=== PATIENT | male | born 1995 | race Caucasian/White ===

== ENCOUNTER 2017-01-30 06:18 | Emergency (ER) | payer OTHER ==
[2017-01-30 06:26] VITALS: RESP 16; TEMP 98.7
--- NOTE | 2017-01-30 06:31 | ED ---
General Adult HPI - General Source: patient, RN notes reviewed Mode of arrival: ambulatory Limitations: no limitations <Ravnidra Iraheta - Last Filed: 01/30/17 06:33> <Wang Chou - Last Filed: 01/30/17 07:50> - General Chief complaint: Extremity Injury, Lower Stated complaint: foot injury-[facility] Time Seen by Provider: 01/30/17 06:25 - History of Present Illness Initial comments: This is a 21-year-old male who presents emergency Department complaining of right foot pain. Patient states he was at work he dropped a gauge onto his right foot. Patient states the pain is at the fourth and fifth metatarsal. Patient states the gauge weighed about 9-10 pounds. Patient denies any ankle pain or any other problems. (Ravindra Iraheta) - Related Data Previous Rx's Medication Instructions Recorded Ibuprofen [Motrin] 600 mg PO Q8HR PRN #24 tab 01/30/17 Allergies Allergy/AdvReac Type Severity Reaction Status Date / Time No Known Allergies Allergy Verified 01/30/17 07:33 Review of Systems ROS Other: All systems not noted in ROS Statement are negative. <Ravindra Iraheta - Last Filed: 01/30/17 06:33> ROS Other: All systems not noted in ROS Statement are negative. <Wang Chou - Last Filed: 01/30/17 07:50> ROS Statement: Those systems with pertinent positive or pertinent negative responses have been documented in the HPI. Past Medical History Past Medical History: No Reported History History of Any Multi-Drug Resistant Organisms: None Reported Past Surgical History: No Surgical Hx Reported Past Psychological History: No Psychological Hx Reported Smoking Status: Never smoker Past Alcohol Use History: None Reported Past Drug Use History: None Reported <Ravindra Iraheta - Last Filed: 01/30/17 06:33> General Exam Limitations: no limitations <Ravindra Iraheta - Last Filed: 01/30/17 06:33> <Wang Chou - Last Filed: 01/30/17 07:50> - General Exam Comments Initial Comments: GENERAL Patient is well-developed and well-nourished. Patient is in mild distress. EYES Patient's pupils are equal and round. Extraocular motion is intact SKIN Unremarkable NEURO The patient is alert and oriented 3 PYSCH Patient has normal interpersonal interactions. MUSCULOSKELETAL Patient has tenderness at the distal aspect of the fourth metatarsal and there is slight ecchymosis in that area (Ravindra Iraheta) Medical Decision Making <Ravindra Iraheta - Last Filed: 01/30/17 06:33> <Wang Chou - Last Filed: 01/30/17 07:50> - Medical Decision Making Dr. Chou completely taking over the care of this patient at 7 AM (Ravindra Iraheta) Patient's care was signed out at shift change, pending x-ray of the right foot. I did review his x-ray, no acute bony abnormality, on reevaluation patient does have mild ecchymosis of the distal foot over the fourth metacarpal head. No significant tenderness or swelling. Patient is able to ambulate without difficulty. Patient will follow-up with his primary care physician in the next several days. (Wang Chou) Disposition <Ravindra Iraheta - Last Filed: 01/30/17 06:33> Time of Disposition: 07:50 <Wang Chou - Last Filed: 01/30/17 07:50> Clinical Impression: Foot contusion Disposition: HOME SELF-CARE Condition: Good Instructions: Foot Contusion (ED) Prescriptions: Ibuprofen [Motrin] 600 mg PO Q8HR PRN #24 tab PRN Reason: Pain Referrals: None,Stated [Primary Care Provider] - 1-2 days
--- NOTE | 2017-01-30 07:42 | XR ---
EXAMINATION TYPE: XR foot complete RT DATE OF EXAM: 01/30/2017 COMPARISON: NONE HISTORY: 21-year-old male with pain after injury, distal second through fifth metatarsal areas TECHNIQUE: 3 views FINDINGS: No acute fracture, subluxation, or dislocation. Joint spaces throughout are maintained. IMPRESSION: No acute osseous abnormality seen.
[2017-01-30 08:14] VITALS: BP 138/79; PULSE 57
== END 2017-01-30 08:13 | disposition home or self-care (01) ==
LOC: EC 06:18
DX: S90.31XA Contusion of right foot, initial encounter (principal); W20.8XXA Other cause of strike by thrown, projected or falling object, initial encounter; Y99.0 Civilian activity done for income or pay; Y92.69 Other specified industrial and construction area as the place of occurrence of the external cause
CPT/HCPCS: 99283